=== PATIENT | female | born 1995 | race Caucasian/White ===

== ENCOUNTER 2017-08-18 21:51 | Emergency (ER) | payer BC ==
[~2017-08-18] VITALS: Ht 180.3 cm; Wt 95.5 kg
[2017-08-18 21:57] VITALS: BP 150/66; TEMP 98.2
[2017-08-18] MEDS ORDERED: BIRTH CONTROL (21:59)
[2017-08-18] MEDS ORDERED: NORCO 325 MG-51 TAB PO (23:04)
[2017-08-18 23:15] VITALS: PULSE 89
== END 2017-08-18 23:16 | disposition home or self-care (01) ==
LOC: COL.ER 21:51
DX: S63.242A Subluxation of distal interphalangeal joint of right middle finger, initial encounter (principal); X50.0XXA Overexertion from strenuous movement or load, initial encounter

== ENCOUNTER 2017-10-21 11:00 | Outpatient (RCR) | payer BC ==
[~2017-10-21 11:00] MED LIST: BIRTH CONTROL; NORCO 325 MG-51 TAB PO
== END 2017-12-02 10:11 | disposition home or self-care (01) ==
LOC: WSOT 11:00
DX: Z47.89 Encounter for other orthopedic aftercare (principal); Z98.890 Other specified postprocedural states